=== PATIENT | male | born 1975 | race Caucasian/White ===

== ENCOUNTER 2019-04-17 21:01 | Emergency (ER) | payer BC ==
[2019-04-17 21:30] VITALS: BP 177/82; PULSE 60; O2SAT 98
--- NOTE | 2019-04-17 21:56 | ERPHSYRPT ---
- History of Present Illness Time Seen by Provider: 04/17/19 21:51 Source: patient Exam Limitations: no limitations Patient Subjective Stated Complaint: Back pain Triage Nursing Assessment: Patient ambulated back to ED and transferred self to bed. Patient A+O X 3. Patient's skin pink, warm and dry. Patient states he is having back pain after hurting himself at work from lifting objects 33-40 pounds. Patient complains of right lower back pain. No redness or swelling noted. 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 Patient states he was treating him with stretching and massage, but is still required to do his job lifting the heavy objects. Patient states he is here to see about a weight restriction note. Physician History: 43-year-old white male with history of splenectomy arrives with complaint of pain in his right low lumbar region he he has had his symptoms going on since last Friday 3 days ago. He states he injured himself at work moving parts. He states he was seen by health personnel at work they were doing physical therapy on him. However he feels like he continues to have pain in his right low back worse with moving. He denies any other complaints. Past medical history includes splenectomy. Past surgical history includes appendectomy Timing/Duration: day(s) (3 days) Severity: moderate Modifying Factors: Improves With: movement Associated Symptoms: other (right low back pain), No nausea, No vomiting, No abdominal pain, No shortness of breath, No heartburn, No diaphoresis, No cough, No chills, No chest pain, No fever, No headaches, No loss of appetite, No malaise, No rash, No syncope, No seizure, No weakness Allergies/Adverse Reactions: No Known Drug Allergies Allergy (Verified 04/17/19 21:11) Home Medications: Diclofenac Sodium 50 mg [Voltaren 50 mg] 1 tab PO TID 04/17/19 [History] Hx Tetanus, Diphtheria Vaccination/Date Given: No Hx Influenza Vaccination/Date Given: No Hx Pneumococcal Vaccination/Date Given: No Immunizations Up to Date: Yes - Review of Systems Constitutional: No Fever, No Chills Eyes: No Symptoms Ears, Nose, & Throat: No Symptoms Respiratory: No Cough, No Dyspnea Cardiac: No Chest Pain, No Edema, No Syncope Abdominal/Gastrointestinal: No Abdominal Pain, No Nausea, No Vomiting, No Diarrhea Genitourinary Symptoms: No Dysuria Musculoskeletal: Back Pain (right low back pain) Skin: No Rash Neurological: No Dizziness, No Focal Weakness, No Sensory Changes Psychological: No Symptoms Endocrine: No Symptoms All Other Systems: Reviewed and Negative - Past Medical History Pertinent Past Medical History: Yes Neurological History: No Pertinent History ENT History: No Pertinent History Cardiac History: No Pertinent History Respiratory History: No Pertinent History Endocrine Medical History: No Pertinent History Musculoskeletal History: No Pertinent History GI Medical History: No Pertinent History History: No Pertinent History Psycho-Social History: No Pertinent History 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 - Past Surgical History Past Surgical History: Yes Gastrointestinal: Appendectomy Other Surgical History: splenectomy - Social History Smoking Status: Never smoker Exposure to second hand smoke: Yes Drug Use: none Patient Lives Alone: No - Nursing Vital Signs Nursing Vital Signs: Initial Vital Signs Temperature 98.4 F 04/17/19 21:15 Pulse Rate 60 04/17/19 21:15 Respiratory Rate 18 04/17/19 21:15 Blood Pressure 177/82 04/17/19 21:15 O2 Sat by Pulse Oximetry 98 04/17/19 21:15 Pain Scale Pain Intensity 5 - Physical Exam General Appearance: mild distress, alert Eye Exam: PERRL/EOMI, eyes nml inspection Ears, Nose, Throat Exam: normal ENT inspection, TMs normal, pharynx normal, moist mucous membranes Neck Exam: normal inspection, non-tender, supple, full range of motion Respiratory Exam: normal breath sounds, lungs clear, No respiratory distress Cardiovascular Exam: regular rate/rhythm, normal heart sounds, normal peripheral pulses, capillary refill <2 sec Gastrointestinal/Abdomen Exam: soft, normal bowel sounds, No tenderness, No mass 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) Extremity Exam: normal inspection, normal range of motion, pelvis stable Neurologic Exam: alert, oriented x 3, cooperative, hogshead salvage II-XII nml as tested, normal mood/affect, nml cerebellar function, nml station & gait, sensation nml, No motor deficits Skin Exam: normal color, warm, dry, No rash Lymphatic Exam: No adenopathy SpO2 Interpretation: normal (98%) SpO2: 98 - Course Nursing assessment & vital signs reviewed: Yes - Radiology Exams L-Spine X-ray Interpretation: Interpreted by me (x-ray lumbar spine: No fractures or subluxation) Ordered Tests: Active Orders 24 hr Category Date Time Status LUMBAR LIMITED (2 OR 3 VIEWS) Stat Exams 04/17/19 21:41 Taken Transfer Order Routine Transfer 04/17/19 Ordered Medication Summary Discontinued Medications Generic Name Dose Route Start Last Admin Trade Name Karen PRN Reason Stop Dose Admin Cyclobenzaprine HCl 10 mg 04/17/19 22:20 04/17/19 22:33 Cyclobenzaprine 10 Mg PO 04/17/19 22:21 10 mg STAT ONE Administration Cyclobenzaprine HCl Confirm 04/17/19 22:30 Cyclobenzaprine 10 Mg Administered 04/17/19 22:31 Dose 10 mg .ROUTE .STK-MED ONE - Progress Progress: improved Progress Note: 04/17/19 21:54 43-year-old white male arrives with complaint of pain in his right low lumbar region symptoms going on for 3 days he states he injured himself at work he has been getting physical therapy from the work personnel however he states he continues to have pain in his right low back he feels this is worse with moving and working. On physical examination patient has tenderness with palpation and movement in the right lumbar region he has full range of motion to all extremities sensation intact to all extremities muscloskeletal strength is intact to all extremities. Neurologic examination is normal. I have ordered an x-ray of the patient's lumbar spine. Patient is already on diclofenac. Will consider home, return to work, will place patient on cyclobenzaprine 10 mg orally 3 times a day for [address] patient on lifting and bending twisting restrictions for 48-72 hours. Patient to followup with his company physician. 04/17/19 23:19 - Departure Departure Disposition: Home Clinical Impression: Lumbar strain Qualifiers: Encounter type: initial encounter Qualified Code(s): S39.012A - Strain of muscle, fascia and tendon of lower back, initial encounter Condition: Fair Critical Care Time: No Referrals: JACK GODINEZ MD [Primary Care Provider] - Instructions: Low Back Pain (DC) Additional Instructions: Return home. Cyclobenzaprine 10 mg orally 3 times a day for 5 days. Limited twisting turning bending, limited strenuous pushing pulling. No lifting more than 5 pounds, all for 48-72 hours. Followup with your company physician. Return for acute distress or for severe symptoms. Prescriptions: Cyclobenzaprine HCl 10 mg [Cyclobenzaprine 10 MG] 10 mg PO TID PRN #15 tablet
[2019-04-17] MEDS ORDERED: Cyclobenzaprine 10 MG PO ONE (22:20)
[2019-04-17] MEDS ORDERED: Cyclobenzaprine 10 MG ONE (22:30)
--- NOTE | 2019-04-18 08:47 | XRAY ---
Indication: Back pain. Comparison: May 04, 2011. 3 views of the lumbar spine again demonstrates normal alignment with mild bilateral L5-S1 degenerative facet arthropathy, inferior L5 Schmorl node, and minimal T12/L1 anterior wedging. Progressive worsening minimal multilevel anterior endplate spurring. Vertebral body heights/disc spaces maintained. New nondisplaced left L3 transverse process fracture with sclerotic margins favoring old nonunited fracture. No acute fracture, subluxation, or suspicious bony lesions. Visualized soft tissues unremarkable. Impression: Nonacute lumbar spine with chronic features.
== END 2019-04-17 22:48 | disposition home or self-care (01) ==
LOC: ED 21:01
DX: S39.012A Strain of muscle, fascia and tendon of lower back, initial encounter (principal); X50.0XXA Overexertion from strenuous movement or load, initial encounter; Y93.89 Activity, other specified; Y92.63 Factory as the place of occurrence of the external cause; Y99.0 Civilian activity done for income or pay
CPT/HCPCS: 72100; 99283; A9270-GY

== ENCOUNTER 2019-08-21 16:00 | Emergency (ER) | payer BC ==
[2019-08-21 16:14] VITALS: O2SAT 100
[2019-08-21] MEDS ORDERED: Norflex 60 MG/2 ML IM ONE (16:32)
[2019-08-21] MEDS ORDERED: TORAdol 30 mg Injection IM ONE (16:32)
--- NOTE | 2019-08-21 16:32 | ERPHSYRPT ---
- History of Present Illness Time Seen by Provider: 08/21/19 16:30 Source: patient Exam Limitations: no limitations Patient Subjective Stated Complaint: Pt states "Friday night I was tossing and turning on the couch sleeping and I hit the coffee table with my right knee and it has been getting worse and worse." Triage Nursing Assessment: Pt presented alert and oriented X 3, skin pwd Pt able to speak in clear full sentnces. Pt in no apprent respiratory distress. Pt right knee swollen and extremely tender Physician History: Pt states "Friday night I was tossing and turning on the couch sleeping and I hit the coffee table with my right knee and it has been getting worse and worse. " Method of Injury: direct blow Occurred: yesterday Quality: constant Severity of Pain-Max: moderate Severity of Pain-Current: moderate Lower Extremities Pain: knee: right Modifying Factors: Improves With: cold therapy Associated Symptoms: unable to bear weight, No snapping sensation, No popping sensation Allergies/Adverse Reactions: No Known Drug Allergies Allergy (Verified 04/17/19 21:11) Home Medications: Diclofenac Sodium 50 mg [Voltaren 50 mg] 1 tab PO TID 04/17/19 [History] Hx Tetanus, Diphtheria Vaccination/Date Given: No Hx Influenza Vaccination/Date Given: Yes Hx Pneumococcal Vaccination/Date Given: No Immunizations Up to Date: Yes - Review of Systems Constitutional: No Fever, No Chills Eyes: No Symptoms Ears, Nose, & Throat: No Symptoms Respiratory: No Cough, No Dyspnea Cardiac: No Chest Pain, No Edema, No Syncope Abdominal/Gastrointestinal: No Abdominal Pain, No Nausea, No Vomiting, No Diarrhea Genitourinary Symptoms: No Dysuria Musculoskeletal: Joint Pain, Joint Swelling (right knee), No Back Pain, No Neck Pain Skin: No Rash Neurological: No Dizziness, No Focal Weakness, No Sensory Changes Psychological: No Symptoms Endocrine: No Symptoms All Other Systems: Reviewed and Negative - Past Medical History Pertinent Past Medical History: Yes Neurological History: No Pertinent History ENT History: No Pertinent History Cardiac History: No Pertinent History Respiratory History: No Pertinent History Endocrine Medical History: No Pertinent History Musculoskeletal History: No Pertinent History GI Medical History: No Pertinent History History: No Pertinent History Psycho-Social History: No Pertinent History 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 - Past Surgical History Past Surgical History: Yes Gastrointestinal: Appendectomy Other Surgical History: splenectomy - Social History Smoking Status: Never smoker Exposure to second hand smoke: Yes Drug Use: none Patient Lives Alone: No - Nursing Vital Signs Nursing Vital Signs: Initial Vital Signs Temperature 99.5 F 08/21/19 16:10 Pulse Rate 80 08/21/19 16:10 Respiratory Rate 20 08/21/19 16:10 Blood Pressure 166/94 08/21/19 16:10 O2 Sat by Pulse Oximetry 100 08/21/19 16:10 Pain Scale Pain Intensity 10 - Physical Exam General Appearance: alert Eyes, Ears, Nose, Throat Exam: moist mucous membranes Neck Exam: non-tender, supple Cardiovascular/Respiratory Exam: chest non-tender, normal breath sounds, regular rate/rhythm, no respiratory distress Gastrointestinal/Abdominal Exam: non-tender, guarding Back Exam: normal inspection, No vertebral tenderness Knees Exam: right knee: ecchymosis, joint effusion, pain, soft tissue tenderness Neuro/Tendon Exam: normal sensation, normal motor functions Mental Status Exam: alert, oriented x 3, cooperative Skin Exam: normal color, warm, dry SpO2: 100 - Course Nursing assessment & vital signs reviewed: Yes - Radiology Exams Knee X-ray Interpretation: Reviewed by me, Negative, No Fracture, No Subluxation Ordered Tests: Active Orders 24 hr Category Date Time Status Ice Pack, Apply PRN Care 08/21/19 16:29 Active KNEE (3 VIEWS) Stat Exams 08/21/19 16:29 Taken Medication Summary Discontinued Medications Generic Name Dose Route Start Last Admin Trade Name Freq PRN Reason Stop Dose Admin Ketorolac Tromethamine 60 mg 08/21/19 16:32 08/21/19 16:58 Toradol 30 Mg Injection IM 08/21/19 16:33 60 mg STAT ONE Administration Ketorolac Tromethamine Confirm 08/21/19 16:50 Toradol 30 Mg Injection Administered 08/21/19 16:51 Dose 60 mg .ROUTE .STK-MED ONE Orphenadrine Citrate 60 mg 08/21/19 16:32 08/21/19 16:57 Norflex 60 Mg/2 Ml IM 08/21/19 16:33 60 mg STAT ONE Administration Orphenadrine Citrate Confirm 08/21/19 16:50 Norflex 60 Mg/2 Ml Administered 08/21/19 16:51 Dose 60 mg .ROUTE .STK-MED ONE - Progress Progress: improved, pain not gone completely Counseled pt/family regarding: diagnosis, need for follow-up, rad results - Departure Departure Disposition: Home Clinical Impression: Contusion of right knee Qualifiers: Encounter type: initial encounter Qualified Code(s): S80.01XA - Contusion of right knee, initial encounter Condition: Stable Critical Care Time: No Referrals: JACK GODINEZ MD [Primary Care Provider] - Instructions: Knee Pain (DC), Knee Sprain (DC) Additional Instructions: Discharge/Care Plan NANCY FARIA was seen on 08/21/19 in the Emergency Room. The patient was counseled regarding Diagnosis,Lab results, Imaging studies, need for follow up and when to return to the Emergency Room. Prescriptions given: Discharge Note I have spoken with the patient and/or caregivers. I have explained the patient' s condition, diagnosis and treatment plan based on the information available to me at this time. I have answered the patient's and/or caregiver's questions and addressed any concerns. The patient and/or caregivers have as good understanding of the patient's diagnosis, condition and treatment plan as can be expected at this point. The vital signs have been stable. The patient's condition is stable and appropriate for discharge from the emergency department. The patient will pursue further outpatient evaluation with the primary care physician or other designated or consulting physician as outlined in the discharge instructions. The patient and/or caregivers are agreeable to this plan of care and follow-up instructions have been explained in detail. The patient and/or caregivers have received these instruction. The patient/and or caregivers are aware that any significant change in condition or worsening of symptoms should prompt an immediate return to this or the closest emergency department or call 911. NANCY FARIA was seen on 08/21/19 n the Emergency Room. At that time you were treated for an emergent condition, during your visit Laboratory, Radiology and/or other procedures may have been ordered. It is very important that you follow-up with your Primary Care Physician JACK GODINEZ within the next 24- 48 hours to review your Emergency Room visit and the final results of testing that was ordered. Some test results such as Urine Cultures, Blood Cultures, and other cultures if ordered will not be finalized for 24-48 hours. If you do not have a Primary Care Provider please call the medical records department at [phone] ext [phone] to obtain a copy of your results or you may sign into our patient portal to obtain these results by visiting us @ [email or web address] and completing the following steps: 1. Click on the Patient Portal link 2. Click the Patient Self Enrollment Link to complete the enrollment form and entering your 3. Once the enrollment form is completed you will receive an email with a temporary ID and password at the email address you provided. 4. Next choose a user name and password. Your user name must be at least 4 characters long and your password must be at least 4 characters long. 5. Choose a security question from the list and provide your answer to the question. If you already have signed into the Health Portal you may access your Health Care Information 07/04 by the following steps: 1. Login to our website @ [email or web address] 2. Enter your original user name and password. FAQS The [facility] Portal is an online tool that contains your Lab Results, Radiology Reports, Visit History, Discharge Instructions and Health Summary Lab and Radiology Results will not be available for 72 hours on the portal. The Portal is a secure site, passwords are encryted and URLs are re-written so they cannot be copied and pasted. You and authorized family members are the only ones who can access your Portal. Also there is a timeout feature that protects your information if you leave the Portal page open. If you have technical difficulty please use the Contact Us link on the page this will allow you to submit any questions you have regarding the Portal or you may contact the Medical Record Department at [phone] ext [phone].
[2019-08-21] MEDS ORDERED: Norflex 60 MG/2 ML ONE (16:50)
[2019-08-21] MEDS ORDERED: TORAdol 30 mg Injection ONE (16:50)
[2019-08-21 17:01] VITALS: BP 132/79; PULSE 72
--- NOTE | 2019-08-21 20:19 | XRAY ---
Indication: Pain following injury 6 days ago. Comparison: None 3 views of the right knee demonstrates mild anterior soft tissue swelling, small patella spurring, and small posterior fabella. No other bony, articular, or soft tissue abnormalities.
== END 2019-08-21 17:38 | disposition home or self-care (01) ==
LOC: ED 16:00
DX: S80.01XA Contusion of right knee, initial encounter (principal); W22.09XA Striking against other stationary object, initial encounter
CPT/HCPCS: 73562; 96372; 99284; J1885; J2360